=== PATIENT | female | born 1970 | race Caucasian/White ===

== ENCOUNTER 2022-06-01 10:38 | Day surgery (SDC) | payer OTHER ==
[~2022-06-01] VITALS: Ht 172.7 cm; Wt 64.0 kg
[~2022-06-01 10:38] MED LIST: LEVO750 PO
[2022-06-01] MEDS ORDERED: TRAZ50 (11:54)
--- NOTE | 2022-06-01 12:38 | NUR ---
06/01/22 1238 Araceli Rodrigues FIVE ATTEMPTS AT IV. FIRST ATTEMPT AT IV BY GISELE IN RIGHT FOREARM MISSED. SECOND ATTEMPT AT IV IN RIGHT AC UNABLE TO ADVANCE. THIRD ATTEMPT AT IV BY DR IN RIGHT HAND INFILTRATED. FOURTH ATTEMPT AT IV BY DR IN LEFT HAND MISSED. FIFTH ATTEMPT AT IV BY RN IN LEFT HAND SUCCESSFUL.
== END 2022-06-01 14:45 | disposition home or self-care (01) ==
LOC: ORSCSDS 10:38
PROVIDERS: Internal Medicine Gastroenterology
PROC: 0DJD8ZZ Inspection of Lower Intestinal Tract, Via Natural or Artificial Opening Endoscopic (ICD-10-PCS; principal; 2022-06-01 12:00)
DX: Z12.11 Encounter for screening for malignant neoplasm of colon (principal); J45.909 Unspecified asthma, uncomplicated; Z79.899 Other long term (current) drug therapy
CPT/HCPCS: J2001; J2704; J7120

== ENCOUNTER → 2023-08-21 | Outpatient (CLI) | payer OTHER ==
[~2023-08-21] MED LIST changes: +TRAZ50
== END | disposition home or self-care (01) ==
LOC: LAB SHORT 15:50 → LAB 15:50
DX: R30.0 Dysuria (principal)
CPT/HCPCS: 87077; 87086; 87186

== ENCOUNTER → 2023-09-18 | Outpatient (CLI) | payer OTHER ==
[2023-09-19 12:39] LABS: Candida Group, PCR NOT DETECTED (NOT DETECT); Candida glabrata-krusei, PCR NOT DETECTED (NOT DETECT)
[2023-09-19 12:41] LABS: Bacterial Vaginosis PCR Positive (NEGATIVE)
== END | disposition home or self-care (01) ==
LOC: LAB SHORT 13:00 → LAB 13:00
PROVIDERS: Nurse Practitioner Family
DX: N76.0 Acute vaginitis (principal); R30.0 Dysuria
CPT/HCPCS: 87077; 87086; 87186; 87481; 87661; 87801